=== PATIENT | male | born 1985 | race American Indian/Alaskan Native ===

== ENCOUNTER 2018-04-23 06:47 | Emergency (ER) | payer OTHER ==
[2018-04-23 07:01] VITALS: RESP 20
[2018-04-23] MEDS ORDERED: Sodium Chloride 0.9% 1,000 ML IV ONE (07:28)
[2018-04-23] MEDS ORDERED: Sodium Chloride 0.9% 1,000 ML ONE (07:36)
[2018-04-23 08:07] LABS: BASO % 0.5 % (0.0-2.0); EOS # 0.1 K/uL (0.0-0.7); EOS % 1.5 % (0.0-4.0); HEMOGLOBIN 13.3 g/dL (12.0-18.0); LYMPH # 1.8 K/uL (1.0-4.3); MEAN CELL VOLUME 76.6 fL (80.0-94.0); MEAN CORPUSCULAR HEMOGLOBIN 25.5 pg (27.0-31.0); MEAN CORPUSCULAR HGB CONC 33.3 g/dL (33.0-37.0); MEAN PLATELET VOLUME 8.5 fL (7.2-11.7); MONO # 0.9 K/uL (0.0-0.8); MONO % 11.5 % (0.0-10.0); NEUT # 4.9 K/uL (1.8-7.0); NEUT % 63.5 % (50.0-75.0); RBC 5.23 Mil/uL (4.40-5.90); RED CELL DISTRIBUTION WIDTH 16.7 % (11.5-14.5); WHITE BLOOD COUNT 7.8 K/uL (4.8-10.8)
[2018-04-23 08:18] LABS: ALB/GLOB RATIO 1.1 (1.0-2.1); ALBUMIN 4.2 g/dL (3.5-5.0); ALT/SGPT 37 U/L (21-72); AST/SGOT 48 U/L (17-59); BLOOD UREA NITROGEN 13 mg/dL (9-20); CALCIUM 9.7 mg/dl (8.6-10.4); GFR AFRICAN-AMERICAN > 60; GFR NON-AFRICAN AMERICAN > 60; LIPASE 76 U/L (23-300)
[2018-04-23 08:21] LABS: SQUAMOUS EPITHIAL 1 /hpf (0-5); URINE BACTERIA RARE (<OCC); URINE BILIRUBIN NEGATIVE (NEGATIVE); URINE BLOOD 2+ (NEGATIVE); URINE CLARITY Clear (Clear); URINE COLOR Yellow (YELLOW); URINE GLUCOSE (UA) NORMAL (Normal); URINE LEUKOCYTE ESTERASE NEG Leu/uL (Negative); URINE PROTEIN NEGATIVE (NEGATIVE)
--- NOTE | 2018-04-23 08:56 | C.PDOC ---
History Of Present Illness 32yo male, comes to ER for evaluation of abdominal pain x 5 days, described as a cramping pain. He reports associated nausea and watery diarrhea as well. Patient states he went to the pool prior to the start of his symptoms. He denies any fever, chills, recent travels, and offers no other complaints. Time Seen by Provider: 04/23/18 07:15 Chief Complaint (Nursing): Abdominal Pain History Per: Patient History/Exam Limitations: no limitations Onset/Duration Of Symptoms: Days Current Symptoms Are (Timing): Still Present Location Of Pain/Discomfort: Diffuse Quality Of Discomfort: "Pain" Associated Symptoms: Nausea, Diarrhea. denies: Fever, Chills, Vomiting Additional History Per: Patient Past Medical History Reviewed: Historical Data, Nursing Documentation, Vital Signs Vital Signs: Last Vital Signs Temp 99.6 F 04/23/18 09:16 Pulse 73 04/23/18 09:16 Resp 20 04/23/18 09:16 BP 122/77 04/23/18 09:16 Pulse Ox 99 04/23/18 09:16 - Medical History PMH: No Chronic Diseases Surgical History: No Surg Hx Family History: States: Unknown Family Hx - Social History Hx Tobacco Use: Yes Hx Alcohol Use: Yes Hx Substance Use: No - Immunization History Hx Tetanus Toxoid Vaccination: No Hx Influenza Vaccination: No Hx Pneumococcal Vaccination: No Review Of Systems Except As Marked, All Systems Reviewed And Found Negative. Constitutional: Negative for: Fever, Chills Cardiovascular: Negative for: Chest Pain Respiratory: Negative for: Shortness of Breath Gastrointestinal: Positive for: Abdominal Pain, Diarrhea. Negative for: Nausea , Vomiting, Constipation Physical Exam - Physical Exam Appears: Non-toxic, No Acute Distress Skin: Normal Color Head: Normacephalic Eye(s): bilateral: Normal Inspection Neck: Supple Chest: Symmetrical Cardiovascular: Rhythm Regular Respiratory: Normal Breath Sounds Gastrointestinal/Abdominal: Soft, Tenderness (diffuse), No Mass, No Guarding, No Rebound Back: Normal Inspection Extremity: Normal ROM Neurological/Psych: Oriented x3 ED Course And Treatment - Laboratory Results Result Diagrams: 04/23/18 07:50 04/23/18 07:50 O2 Sat by Pulse Oximetry: 100 (RA) Pulse Ox Interpretation: Normal Medical Decision Making Medical Decision Making: Impression: Abdominal pain Plan: -- Labs -- XR obstructive series -- Urinalysis -- Pepcid 20mg IV -- Toradol 30mg IV -- IV FLuids -- ZOfran 4mg IV Time: 909 patient states improvement. will discharge home to follow up with pmd in 2 days Disposition Counseled Patient/Family Regarding: Studies Performed, Need For Followup, Rx Given - Disposition Referrals: [facility] [Outside] Disposition: HOME/ ROUTINE Disposition Time: 09:04 Condition: IMPROVED Additional Instructions: follow up with your doctor or medical clinic within 2 days call to make an appointment take medications as needed return to ER immediately if symptoms worsens or progress Prescriptions: Famotidine [Pepcid] 20 mg PO BID #20 tab Naproxen [Naprosyn] 500 mg PO BID PRN #16 tab PRN Reason: Pain, Moderate (4-7) Ondansetron ODT [Zofran ODT] 4 mg PO TID PRN #12 odt PRN Reason: Nausea/Vomiting Instructions: Stomach Ache and Stomach Upset Forms: General Discharge Instructions, [facility] (Ukrainian), Work Excuse - Clinical Impression Clinical Impression: Abdominal discomfort - Scribe Statement The provider has reviewed the documentation as recorded by the Brody Hu Provider Attestation: All medical record entries made by the Brody were at my direction and personally dictated by me. I have reviewed the chart and agree that the record accurately reflects my personal performance of the history, physical exam, medical decision making, and the department course for this patient. I have also personally directed, reviewed, and agree with the discharge instructions and disposition.
[2018-04-23 09:17] VITALS: BP 122/77; PULSE 73; TEMP 99.6
--- NOTE | 2018-04-23 11:27 | RAD ---
Date of service: 04/23/2018 PROCEDURE: Radiographs of the chest and abdomen (obstructive series) HISTORY: abd pain COMPARISON: No prior. TECHNIQUE: AP radiograph of the chest, with upright and supine radiographs of the abdomen. FINDINGS: CHEST: Lungs: Clear. Cardiovascular: Normal size heart. No pulmonary vascular congestion. Pleura: No pleural fluid. No pneumothorax. Other findings: None. ABDOMEN AND PELVIS: Bowel: Unremarkable bowel gas pattern. No evidence of mechanical obstruction. Free air: None. Bones: Unremarkable. Other findings: None. IMPRESSION: Unremarkable radiographs of chest and abdomen. No evidence of mechanical bowel obstruction.
[2018-04-23 18:13] VITALS: O2SAT 100
== END 2018-04-23 09:17 | disposition home or self-care (01) ==
LOC: C.ER 06:47
DX: R10.9 Unspecified abdominal pain (principal)
CPT/HCPCS: 74022; 80053; 81001; 83690; 85025; 96361; 96374; 96375; 99285; J1885; J2405; J7030

== ENCOUNTER 2019-01-07 11:17 | Emergency (ER) | payer OTHER ==
[2019-01-07 11:30] VITALS: BP 154/96; PULSE 101; TEMP 98.2; O2SAT 100
[2019-01-07] MEDS ORDERED: Naproxen 550 mg Tab PO STA (11:48)
[2019-01-07] MEDS ORDERED: Naproxen 550 mg Tab PO ONE (12:00)
--- NOTE | 2019-01-07 12:41 | C.PDOC ---
History Of Present Illness 33 y/o male presents to the ED complaining of left elbow pain radiating down to the hand and fingers for the past month. Associated with paresthesias. 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 Denies any known trauma or recent fall. He also denies numbness, weakness, fever, or other injury. Time Seen by Provider: 01/07/19 11:29 Chief Complaint (Nursing): Upper Extremity Problem/Injury History Per: Patient History/Exam Limitations: no limitations Onset/Duration Of Symptoms: Days Current Symptoms Are (Timing): Still Present Exacerbating Factor(s): Strenuous Use Of Affected Area Past Medical History Reviewed: Historical Data, Nursing Documentation, Vital Signs Vital Signs: Last Vital Signs Temp 98.2 F 01/07/19 11:20 Pulse 101 H 01/07/19 11:20 Resp 18 01/07/19 11:20 BP 154/96 H 01/07/19 11:20 Pulse Ox 100 01/07/19 11:20 Surgical History: No Surg Hx Family History: States: Unknown Family Hx - Social History Hx Tobacco Use: Yes Hx Alcohol Use: Yes Hx Substance Use: No - Immunization History Hx Tetanus Toxoid Vaccination: No Hx Influenza Vaccination: No Hx Pneumococcal Vaccination: No Review Of Systems Constitutional: Negative for: Fever, Chills Cardiovascular: Negative for: Chest Pain Respiratory: Negative for: Shortness of Breath Musculoskeletal: Positive for: Arm Pain (left elbow radiating down), Hand Pain (left), Other (+ Paresthesias to left arm). Negative for: Neck Pain Neurological: Negative for: Weakness, Numbness, Headache Physical Exam - Physical Exam Appears: Well, Non-toxic, No Acute Distress Skin: Warm, Dry, No Rash Head: Atraumatic, Normacephalic Eye(s): bilateral: Normal Inspection Respiratory: No Accessory Muscle Use, Other (Normal inspiratory effort) Extremity: Normal ROM (with full ROM of left elbow and digits), Tenderness (Mild tenderness to the medial condyle of left elbow), Capillary Refill (less than 2 sec), No Deformity, No Swelling Pulses: Left Radial: Normal, Right Radial: Normal Neurological/Psych: Oriented x3, Normal Speech, Normal Motor, Normal Sensation Gait: Steady ED Course And Treatment O2 Sat by Pulse Oximetry: 100 (RA) Pulse Ox Interpretation: Normal - Other Rad x-ray left elbow X-Ray: Read By Radiologist Interpretation: Accession No. : [id number]. Patient Name / ID : LEIGH COTA / [id number]. Exam Date : 01/07/2019 11:57:45 ( Approved ). Study Comment : Sex / Age : M / 33Y. Creator : amalia rosado. Dictator : Colleen Wenrer MD. 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 Approver2 : Report Date : 01/07/2019 12:05:09. My Comment : . PROCEDURE: Radiographs of the left elbow. HISTORY: medial elbow pain,. COMPARISON: None available. FINDINGS: BONES: No acute displaced fracture. JOINTS: No dislocation. SOFT TISSUES: 3.1 x 0.7 cm soft tissue calcification.No evidence of radiopaque foreign body. JOINT EFFUSION: No significant joint effusion. OTHER FINDINGS: None available. IMPRESSION: No acute displaced fracture, dislocation, or significant joint effusion identified.Suggest further evaluation with dedicated cross-sectional imaging if indicated. Nonspecific soft tissue calcification measuring approximately 3.1 x 0.7 cm. Medical Decision Making Medical Decision Making: Plan: - 550 mg PO Naproxen - 60 mg PO Prednisone - X-ray taken of left elbow Imaging results discussed with patient in detail. On re-examination, patient is resting comfortably in no acute distress. Patient reports improvement of symptoms. Patient feels comfortable going home and will be discharged. Patient given follow up instructions for ortho. Patient verbalizes understanding of discharge plan. Disposition - Disposition Referrals: Raji Soriano MD [Staff Provider] - Disposition: HOME/ ROUTINE Disposition Time: 12:57 Condition: GOOD Additional Instructions: Follow up with Orthopedist within 1 week if the symptoms persist. Return to ED if worsened. 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 - Scribe Statement The provider has reviewed the documentation as recorded by the Scribe Ashlie Champion All medical record entries made by the Scribe were at my direction and personally dictated by me. I have reviewed the chart and agree that the record accurately reflects my personal performance of the history, physical exam, medical decision making, and the department course for this patient. I have also personally directed, reviewed, and agree with the discharge instructions and disposition.
--- NOTE | 2019-01-07 12:47 | RAD ---
PROCEDURE: Radiographs of the left elbow. HISTORY: medial elbow pain, COMPARISON: None available. FINDINGS: BONES: No acute displaced fracture. JOINTS: No dislocation. SOFT TISSUES: 3.1 x 0.7 cm soft tissue calcification.No evidence of radiopaque foreign body. JOINT EFFUSION: No significant joint effusion. OTHER FINDINGS: None available. IMPRESSION: No acute displaced fracture, dislocation, or significant joint effusion identified.Suggest further evaluation with dedicated cross-sectional imaging if indicated. Nonspecific soft tissue calcification measuring approximately 3.1 x 0.7 cm.
[2019-01-07 13:09] VITALS: RESP 20
== END 2019-01-07 13:08 | disposition home or self-care (01) ==
LOC: C.ER 11:17
DX: M77.02 Medial epicondylitis, left elbow (principal); Z72.0 Tobacco use